=== PATIENT | male | born 1945 | race Caucasian/White ===

== ENCOUNTER 2017-07-30 11:29 | Emergency (ER) | payer MEDICARE ==
[~2017-07-30] VITALS: Ht 182.9 cm; Wt 79.0 kg
[2017-07-30 11:33] VITALS: BP 169/77; PULSE 93; RESP 20; TEMP 99; O2SAT 99
--- NOTE | 2017-07-30 12:01 | PD ---
Physical Exam Time Seen by Provider: 11:59 Narrative 72yo M c/o dizziness and subjective fever x 2 days. Denies abd pain, nausea, vomiting. + occasional cough. Temp 99.0 in triage. Patient seen in triage. VS reviewed. Awaiting bed placement. See next providers note for final patient disposition. Data Data Last Documented VS Vital Signs Date Time Temp Pulse Resp B/P (MAP) Pulse Ox O2 Delivery O2 Flow Rate FiO2 07/30/17 11:33 99.0 93 20 169/77 (107) 99 Room Air MDM Supervised Visit with LILIAM: Gissell Malloy Jul 30, 2017 12:01
[2017-07-30 12:25] LABS: AUTOMATED NEUTROPHIL # 3.9 TH/MM3 (1.8-7.7); BASOPHIL # 0.1 TH/MM3 (0-0.2); BASOPHIL % 1.1 % (0.0-2.0); EOSINOPHIL # 0.1 TH/MM3 (0-0.4); EOSINOPHIL % 2.1 % (0.0-4.0); HEMATOCRIT 41.8 % (39.0-51.0); HEMOGLOBIN 14.1 GM/DL (13.0-17.0); LYMPH % 22.8 % (9.0-44.0); LYMPHOCYTE # 1.5 TH/MM3 (1.0-4.8); MEAN CELL VOLUME 89.1 FL (80.0-100.0); MEAN CORPUSCULAR HEMOGLOBIN 30.1 PG (27.0-34.0); MEAN CORPUSCULAR HGB CONC 33.8 % (32.0-36.0); MEAN PLATELET VOLUME 7.8 FL (7.0-11.0); MONO % 12.3 % (0.0-8.0); MONOCYTE # 0.8 TH/MM3 (0-0.9); NEUT % 61.7 % (16.0-70.0); PLATELET COUNT 291 TH/MM3 (150-450); RED CELL DISTRIBUTION WIDTH 17.6 % (11.6-17.2); WHITE BLOOD COUNT 6.4 TH/MM3 (4.0-11.0)
--- NOTE | 2017-07-30 12:52 | RADRPT ---
EXAM DATE/TIME: 07/30/2017 12:21 [facility] COMPARISON: No previous studies available for comparison. INDICATIONS : Fever and dizziness. MEDICAL HISTORY : Diabetes mellitus type II. SURGICAL HISTORY : None. ENCOUNTER: Initial ACUITY: 3 days PAIN SCORE: 0/10 LOCATION: Bilateral chest FINDINGS: Single AP view of the chest. Calcified granuloma in the left upper lung. The lungs are otherwise rox r. Cardiomediastinal silhouette within normal limits. No evidence of pleural effusion or pneumothorax . CONCLUSION: No acute cardiopulmonary disease identified. Byron Baum MD on July 30, 2017 at 12:49 Board Certified Radiologist. This report was verified electronically.
[2017-07-30 12:55] LABS: BICARBONATE 29.8 MEQ/L (21.0-32.0); CALCIUM 8.6 MG/DL (8.5-10.1); CREATININE 1.04 MG/DL (0.60-1.30)
--- NOTE | 2017-07-30 14:32 | PD ---
HPI Chief Complaint: Dizziness Time Seen by Provider: 13:39 Travel History International Travel<30 days: No Contact w/Intl Traveler<30days: No Traveled to known affect area: No History of Present Illness HPI Patient's a 72-year-old male presents emergency department with his for evaluation of dizziness in fatigue. Patient really cannot clarify whether the dizziness means presyncopal symptoms are vertiginous symptoms. Patient states he just feels funny when he goes from a lying to a sitting position or sitting to standing position over the past few days, states been drinking a lot of coffee a not too much other fluids. John Paul by his significant other who states that he has been running a fever to 102, when asked if he has been taking his temperature significant other says no she just knows because she has had kids before. No chest pain or shortness of breath no abdominal pain no palpitations no focalized weakness. Symptoms are mild, for the past few days, constant, associated sign symptoms as above. PFSH Past Medical History Medical History: Denies Significant Hx Diabetes: Yes Patient Takes Glucophage: No Past Surgical History Surgical History: No Previous Surgery Social History Alcohol Use: Yes (1 drink a day ) Tobacco Use: Yes (1/4 pack a day ) Substance Use: No Allergies-Medications (Allergen,Severity, Reaction): Coded Allergies: No Known Allergies (Verified Allergy, Unknown, 07/30/17) Review of Systems Except as stated in HPI: all other systems reviewed are Neg Physical Exam Narrative GENERAL: Well-developed well-nourished no obvious distress. Quite pleasant in appears to be in good health. SKIN: Focused skin assessment warm/dry. HEAD: Atraumatic. Normocephalic. EYES: Pupils equal and round. No scleral icterus. No injection or drainage. ENT: No nasal bleeding or discharge. Mucous membranes pink and moist. NECK: Trachea midline. No JVD. CARDIOVASCULAR: Regular rate and rhythm. No murmur appreciated. 2+ bilateral equal pulses in all 4 extrema RESPIRATORY: No accessory muscle use. Clear to auscultation. Breath sounds equal bilaterally. GASTROINTESTINAL: Abdomen soft, non-tender, nondistended. Hepatic and splenic margins not palpable. MUSCULOSKELETAL: No obvious deformities. No clubbing. No cyanosis. No edema. NEUROLOGICAL: Awake and alert. Cranial nerves II through XII are grossly intact nonfocal, 5 out of 5 strength in all 4 extremities PSYCHIATRIC: Appropriate mood and affect; insight and judgment normal. Data Data Last Documented VS Vital Signs Date Time Temp Pulse Resp B/P (MAP) Pulse Ox O2 Delivery O2 Flow Rate FiO2 07/30/17 15:03 07/30/17 13:31 18 98 Room Air 07/30/17 11:33 99.0 93 Orders Orders Electrocardiogram (07/30/17 12:01) Basic Metabolic Panel (Bmp) (07/30/17 12:01) Complete Blood Count With Diff (07/30/17 12:01) Chest, Single Ap (07/30/17 12:01) Influenzae A/B Antigen (07/30/17 12:03) Ed Discharge Order (07/30/17 14:47) Labs Laboratory Tests Test 07/30/17 12:11 White Blood Count 6.4 TH/MM3 Red Blood Count 4.70 MIL/MM3 Hemoglobin 14.1 GM/DL Hematocrit 41.8 % Mean Corpuscular Volume 89.1 FL Mean Corpuscular Hemoglobin 30.1 PG Mean Corpuscular Hemoglobin Concent 33.8 % Red Cell Distribution Width 17.6 % Platelet Count 291 TH/MM3 Mean Platelet Volume 7.8 FL Neutrophils (%) (Auto) 61.7 % Lymphocytes (%) (Auto) 22.8 % Monocytes (%) (Auto) 12.3 % Eosinophils (%) (Auto) 2.1 % Basophils (%) (Auto) 1.1 % Neutrophils # (Auto) 3.9 TH/MM3 Lymphocytes # (Auto) 1.5 TH/MM3 Monocytes # (Auto) 0.8 TH/MM3 Eosinophils # (Auto) 0.1 TH/MM3 Basophils # (Auto) 0.1 TH/MM3 CBC Comment DIFF FINAL Differential Comment Blood Urea Nitrogen 16 MG/DL Creatinine 1.04 MG/DL Random Glucose 127 MG/DL Calcium Level 8.6 MG/DL Sodium Level 137 MEQ/L Potassium Level 4.6 MEQ/L Chloride Level 103 MEQ/L Carbon Dioxide Level 29.8 MEQ/L Anion Gap 4 MEQ/L Estimat Glomerular Filtration Rate 70 ML/MIN MDM Medical Decision Making Medical Screen Exam Complete: Yes Emergency Medical Condition: Yes Differential Diagnosis Dehydration mild, orthostatic hypotension, acute CVA highly unlikely, acute MN highly unlikely. Narrative Course Patient room in the emergency department, his physical exam his completely benign, basic lab including a CBC had a BMP within normal limits, flu test negative, EKG negative, chest x-ray negative. Patient states he feels quite well, discussed that his hydration needs to include on caffeinated fluids as he probably has some mild orthostatic hypotension. Otherwise he appears well in would like to go home. No indication for further workup at this time, he stable for discharge, discussed follow-up with a primary care physician and return to ED criteria Diagnosis Primary Impression: Dehydration Additional Impression: Vertigo Referrals: Swati Taveras MD [facility] Disposition: 01 DISCHARGE HOME Condition: Stable Yandel Cortez MD Jul 30, 2017 14:32
--- NOTE | 2017-07-31 15:35 | EKG ---
Date Performed: 07/30/2017 Time Performed: 12:07:10 PTAGE: 72 years EKG: Sinus rhythm NORMAL ECG NO PREVIOUS TRACING DOCTOR: Keyur Hsu Interpretating Date/Time 07/31/2017 15:34:27
== END 2017-07-30 15:07 | disposition home or self-care (01) ==
LOC: NEPD 11:29
DX: E86.0 Dehydration (principal); R42 Dizziness and giddiness; F17.200 Nicotine dependence, unspecified, uncomplicated; E11.9 Type 2 diabetes mellitus without complications
CPT/HCPCS: 71045; 80048; 85025; 87804; 93005; 99285